=== PATIENT | male | born 1965 | race Caucasian/White ===

== ENCOUNTER 2019-07-23 11:31 | Emergency (ER) | payer OTHER ==
[~2019-07-23] VITALS: Ht 165.1 cm; Wt 74.8 kg
[~2019-07-23 11:31] MED LIST: ASPI-1718 PO; METF1000 PO
[2019-07-23 11:39] VITALS: BP 150/97
--- NOTE | 2019-07-23 11:45 | NUR ---
PT AMBULATED TO ER BED 04
--- NOTE | 2019-07-23 11:53 | NUR ---
PT BIB SELF C/O LT FOOT PAIN. BUG BITE FEW DAYS AGO, PROGRESSED WITH INCREASED REDNESS, SWELLING, AND PAIN. NON RADIAITNG PAIN AT 7/10 THAT INCREASES WHEN BEARING WEIGHT, TX W/ IBUPROFEN W/ SOME RELEIF. - N/V OR PRUITIS. VSS. ER TO SEE PT. HX--DM RX--METFORMIN, GLIPIZIDE
[2019-07-23] MEDS ORDERED: CEPHALEXIN 500 MG CAP PO ONE (12:10)
[2019-07-23] MEDS ORDERED: SULFAMETH/TRIMETH DS 800/160MG 1 TAB PO ONE (12:10)
[2019-07-23] MEDS ORDERED: INSULIN REGULAR, HUMAN 100 UNIT/ML VIAL SUBQ ONE ×2 (12:15→13:45)
--- NOTE | 2019-07-23 12:20 | NUR ---
RECHECK OF BS IS 502, ER MADE AWARE.
[2019-07-23] MEDS ORDERED: NACL 0.9% 1,000 ML IV ONE (12:50)
[2019-07-23] MEDS ORDERED: INSULIN REGULAR, HUMAN 100 UNIT/ML VIAL IV ONE (12:50)
[2019-07-23 13:17] LABS: BASOPHILS % (AUTO) 0.3 % (0.0-2.0); EOSINOPHILS # (AUTO) 0.1 K/uL (0-0.4); EOSINOPHILS % (AUTO) 1.3 % (0.0-4.0); HEMATOCRIT 43.6 % (36-52); HEMOGLOBIN 14.9 g/dL (12.0-18.0); LYMPHOCYTES # (AUTO) 1.8 K/uL (2.0-11.5); LYMPHOCYTES % (AUTO) 27.6 % (20.5-51.1); MEAN CORPUSCULAR HEMOGLOBIN 30 pg (27-31); MEAN CORPUSCULAR HGB CONC 34 g/dL (33-37); MEAN CORPUSCULAR VOLUME 87.9 fL (80-94); MONOCYTES # (AUTO) 0.4 K/uL (0.8-1.0); MONOCYTES % (AUTO) 6.1 % (1.7-9.3); NEUTROPHILS # (AUTO) 4.2 K/uL (1.8-7.7); NEUTROPHILS % (AUTO) 64.7 % (42.2-75.2); PLATELET COUNT (AUTO) 194 K/uL (140-450); RED BLOOD CELL COUNT(AUTO) 4.96 MIL/uL (4.20-6.10); RED CELL DISTRIBUTION WIDTH 13.2 % (11.6-13.7); WHITE BLOOD COUNT (AUTO) 6.5 K/uL (4.8-10.8)
[2019-07-23 13:34] LABS: ALBUMIN 3.7 g/dL (3.4-5.0); ANION GAP 13.2 (8-16); CARBON DIOXIDE 26.9 mmol/L (21-32); POTASSIUM 4.1 mmol/L (3.5-5.1); TOTAL BILIRUBIN 0.7 mg/dL (0.0-1.0)
--- NOTE | 2019-07-23 13:52 | NUR ---
BS 383, ER INFORMED, PER ER DC ORDER OF 6 UNITS IV REGULAR INSULIN.
[2019-07-23 14:03] VITALS: BP 127/76
--- NOTE | 2019-07-23 14:03 | NUR ---
Patient discharged with v/s stable. Written and verbal after care instructions given and explained. Patient alert, oriented and verbalized understanding of instructions. Ambulatory with steady gait. All questions addressed prior to discharge. ID band removed. Patient advised to follow up with PMD. Rx of KEFLEX AND BACTRIM given. Patient educated on indication of medication including possible reaction and side effects. Opportunity to ask questions provided and answered.
== END 2019-07-23 14:03 | disposition home or self-care (01) ==
LOC: MED 11:31
DX: L03.116 Cellulitis of left lower limb (principal); E11.65 Type 2 diabetes mellitus with hyperglycemia; Z79.82 Long term (current) use of aspirin; Z79.84 Long term (current) use of oral hypoglycemic drugs; W57.XXXA Bitten or stung by nonvenomous insect and other nonvenomous arthropods, initial encounter; Y92.89 Other specified places as the place of occurrence of the external cause; Y93.89 Activity, other specified; Y99.8 Other external cause status
CPT/HCPCS: 36415; 80053; 82948; 85025; 96361; 96372; 96374; 99283; J1815; J7030

== ENCOUNTER 2022-01-30 06:16 | Day surgery (SDC) | payer OTHER, SELFPAY ==
[~2022-01-30] VITALS: Ht 170.2 cm; Wt 75.3 kg
[~2022-01-30 06:16] MED LIST changes: -ASPI-1718 PO; +ASPI-1822 PO; +METF-1274 PO; -METF1000 PO
[2022-01-30] MEDS ORDERED: fentaNYL citrate 0.05 MG/ML VIAL ONE (07:22)
[2022-01-30] MEDS ORDERED: LIDOCAINE 2% 100 MG/5 ML UJET TP ONE (07:22)
[2022-01-30] MEDS ORDERED: fentaNYL citrate 0.05 MG/ML VIAL IVP ONE (08:20)
== END 2022-01-30 08:50 | disposition home or self-care (01) ==
LOC: MDS 06:16 → MMU 06:17 → MDS 08:50
PROVIDERS: ATTEND Internal Medicine Gastroenterology
DX: Z12.11 Encounter for screening for malignant neoplasm of colon (principal); E11.9 Type 2 diabetes mellitus without complications; E78.00 Pure hypercholesterolemia, unspecified; K21.9 Gastro-esophageal reflux disease without esophagitis; I10 Essential (primary) hypertension; K59.00 Constipation, unspecified; Z80.0 Family history of malignant neoplasm of digestive organs; Z79.899 Other long term (current) drug therapy
CPT/HCPCS: 45378; 87426; J3010